=== PATIENT | male | born 1945 | race Native Hawaiian/Other Pacific Islander ===

== ENCOUNTER 2019-06-20 07:45 | Day surgery (SDC) | payer OTHER ==
[~2019-06-20] VITALS: Ht 30.5 cm; Wt 0.5 kg
== END 2019-06-20 10:00 | disposition home or self-care (01) ==
LOC: OR 07:45
PROC: 3E0R33Z Introduction of Anti-inflammatory into Spinal Canal, Percutaneous Approach (ICD-10-PCS; principal; 2019-06-20)
PROC: 3E0R3BZ Introduction of Anesthetic Agent into Spinal Canal, Percutaneous Approach (ICD-10-PCS; 2019-06-20)
DX: M53.3 Sacrococcygeal disorders, not elsewhere classified (principal); M46.1 Sacroiliitis, not elsewhere classified
CPT/HCPCS: J1020; J3490

== ENCOUNTER 2021-01-13 16:56 | Outpatient (CLI) | payer OTHER | END 2021-01-13 21:02 | disposition home or self-care (01) | LOC: LABW 16:56 | PROVIDERS: ATTEND Nurse Practitioner Family | DX: M79.605 Pain in left leg (principal); M79.672 Pain in left foot | CPT/HCPCS: 36415; 84550 ==